=== PATIENT | male | born 1950 | race Two or more races ===

== ENCOUNTER 2025-10-07 12:32 | Emergency (ER) | payer OTHER, SELFPAY ==
[2025-10-07] VITALS (7 sets, daily range): BP systolic 112–131; BP diastolic 61–72; PULSE 67–75
[2025-10-07 13:09] LABS: Hematocrit 40.2 % (39.0-52.0); Hemoglobin 15.0 g/dL (13.0-18.0); Mean Corp Hgb Conc. 37.3 g/dL (33.0-37.0); Mean Corpuscular Volume 87.8 fL (80.0-94.0); Nucleated Red Blood Cells % 0 % (-); Platelet Count 176 10^3/uL (130-400); Red Cell Dist. Width 13.9 % (11.5-14.5)
[2025-10-07 13:15] LABS: INR 1.10; PT 14.5 Sec (11.4-14.6)
[2025-10-07 13:16] LABS: APTT 31.6 Sec (23.4-35.0)
[2025-10-07 13:29] LABS: ALT (SGPT) 21 U/L (0-50); AST (SGOT) 24 U/L (17-59); Albumin 4.4 g/dl (3.5-5.0); Alkaline Phosphatase 63 U/L (38-126); Blood Urea Nitrogen 17 mg/dl (9-20); Calcium 9.3 mg/dl (8.4-10.2); Carbon Dioxide 29 mmol/L (22-30); Chloride 103 mmol/L (98-107); Glucose 107 mg/dl (70-99); Potassium 4.7 mmol/L (3.5-5.1); Sodium 139 mmol/L (135-145); Total Protein 8.2 g/dl (6.3-8.2); eGFR > 60.00
[2025-10-07 13:37] LABS: Troponin I < 0.012 ng/ml
--- NOTE | 2025-10-07 15:58 | ED.GENMED ---
History of Present Illness
<Siria Solis PA-C - Last Filed: 10/09/25 13:20>
General
Chief Complaint: Dizziness
Source: patient
Exam Limitations: none
Time Seen by Provider: 10/07/25 15:50
Nursing documentation reviewed up to this point in time: agreed with
History of Present Illness
History of Present Illness:
see MDM
Phy Exam
<Siria Solis PA-C - Last Filed: 10/09/25 13:20>
Physical Exam
Physical Exam:
see MDM
Course
<Siria Solis PA-C - Last Filed: 10/09/25 13:20>
Orders/Labs/Results
Orders:
Orders
10/07/25 12:47
CT Head W/o Iv Contrast Urgent
Comment:
Reason For Exam: dizziness
10/07/25 12:57
Complete Blood Count/With Diff Urgent
Comprehensive Metabolic Panel Urgent
PTT Urgent
Prothrombin Time Urgent
TSH Reflex To Free T4 Urgent
Comment: ADD ON
Troponin I Urgent
10/07/25 16:35
0.9% Sodium Chloride 1000 ml [Nss] 1,000 ml IV BOLUS
10/07/25 16:36
Add On- LAB Urgent
Tests Added?: tsh reflex t4
Orthostatic VS- Treatment ONCE
10/07/25 16:52
COVID-19 Antigen Urgent
Source: Nasal Swab
Influenza A+B Rapid Molecular Urgent
ELVA Source: Nasal Swab
Specimen Description:
Abnormal Lab Results
10/07/25
12:57
WBC 4.4 L 10^3/uL
(4.8-10.8)
RBC 4.58 L 10^6/uL
(4.70-6.10)
MCH 32.8 H pg
(27.0-31.0)
MCHC 37.3 H g/dL
(33.0-37.0)
Monocytes % 10.4 H %
(1.7-9.3)
Glucose 107 H mg/dl
(70-99)
Total Bilirubin 1.4 H mg/dl
(0.2-1.3)
10/07/25 12:57
10/07/25 12:57
Vital Signs
Initial and Last Documented VS:
Initial Vital Signs
Temp Pulse Resp BP Pulse Ox
36.8 C 56 16 129/71 99
10/07/25 12:40 10/07/25 12:40 10/07/25 12:40 10/07/25 12:40 10/07/25 12:40
Last Documented Vital Signs
Temp Pulse Resp BP Pulse Ox
36.8 C 68 19 122/61 98
10/07/25 12:40 10/07/25 17:45 10/07/25 17:45 10/07/25 17:00 10/07/25 17:45
Jessicalt;Violetta Syed, DO - Last Filed: 10/07/25 18:15>
Orders/Labs/Results
Orders:
Orders
10/07/25 12:47
CT Head W/o Iv Contrast Urgent
Comment:
Reason For Exam: dizziness
10/07/25 12:57
Complete Blood Count/With Diff Urgent
Comprehensive Metabolic Panel Urgent
PTT Urgent
Prothrombin Time Urgent
TSH Reflex To Free T4 Urgent
Comment: ADD ON
Troponin I Urgent
10/07/25 16:35
0.9% Sodium Chloride 1000 ml [Nss] 1,000 ml IV BOLUS
10/07/25 16:36
Add On- LAB Urgent
Tests Added?: tsh reflex t4
Orthostatic VS- Treatment ONCE
10/07/25 16:52
COVID-19 Antigen Urgent
Source: Nasal Swab
Influenza A+B Rapid Molecular Urgent
ELVA Source: Nasal Swab
Specimen Description:
Abnormal Lab Results
10/07/25
12:57
WBC 4.4 L 10^3/uL
(4.8-10.8)
RBC 4.58 L 10^6/uL
(4.70-6.10)
MCH 32.8 H pg
(27.0-31.0)
MCHC 37.3 H g/dL
(33.0-37.0)
Monocytes % 10.4 H %
(1.7-9.3)
Glucose 107 H mg/dl
(70-99)
Total Bilirubin 1.4 H mg/dl
(0.2-1.3)
10/07/25 12:57
10/07/25 12:57
Vital Signs
Initial and Last Documented VS:
Initial Vital Signs
Temp Pulse Resp BP Pulse Ox
36.8 C 56 16 129/71 99
10/07/25 12:40 10/07/25 12:40 10/07/25 12:40 10/07/25 12:40 10/07/25 12:40
Last Documented Vital Signs
Temp Pulse Resp BP Pulse Ox
36.8 C 68 19 122/61 98
10/07/25 12:40 10/07/25 17:45 10/07/25 17:45 10/07/25 17:00 10/07/25 17:45
<Siria Solis PA-C - Last Filed: 10/09/25 13:20>
MDM/Problems Addressed
Differential Diagnosis Includes:
see MDM
MDM/Problems Addressed:
Note:
CHIEF COMPLAINT(S)
- Lightheadedness since yesterday morning.
HISTORY OF PRESENT ILLNESS
The patient is a 75-year-old male who presents with lightheadedness that began yesterday morning upon waking from sleep. The patient reports experiencing episodes of lightheadedness both while seated and when getting up, which persisted throughout
the day. The dizziness was described as a 'light-head,' without any associated room-spinning sensations, indicating the absence of vertigo. There was no chest pain, shortness of breath, facial numbness, facial droop, numbness, tingling, weakness in
extremities, or recent falls reported. The patient did not feel as if he was going to pass out. Today, symptoms were noted to be less intense. The patient denied any recent illness, dehydration, or changes in dietary or fluid intake. He has had no
recent travel or significant lifestyle changes. Past cardiac history includes arrhythmia, and he denies any history of myocardial infarction or coronary stenting. Blood pressure variations were noted, suspected to be orthostatic hypotension with
numbers documented where he dropped his blood pressure from 120/70, per documentation from a recent visit to his primary care provider. Flying to 100/60 standing
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
PAST MEDICAL AND SURIGICAL HISTORY
- Cardiac arrhythmia
MEDICATIONS
- Apixaban (Eliquis)
- Atenolol
REVIEW OF SYSTEMS
- Neurological: Lightheadedness, no numbness, tingling, or weakness
- Cardiovascular: No chest pain
- Respiratory: No shortness of breath
SOCIAL DETERMINANTS AFFECTING HEALTH
This section was not specifically discussed in the transcript reviewed.
PHYSICAL EXAM
- Nursing notes reviewed and vital signs reviewed.
GENERAL: Alert , in no apparent distress
EYE: pupils equal and reactive
NECK: Supple
ENT: o/p clr, mmm.
CARDIAC: Regular rate and rhythm . No murmur
LUNGS: Clear breath sounds bilaterally, no acute respiratory distress, no wheezes/rales/rhonchi
ABDOMEN: Soft, without focal tenderness, no r/g, no cvat, normal bowel sounds
NEUROLOGICAL: Alert and oriented, no focal neuro deficits
SKIN: Warm and dry, skin intact.
MUSCULOSKELETAL: No edema, well perfused. neg calli's sign
PSYCH: Normal and appropriate interaction.
Orthostatics positive by symptoms, not significantly dropped BP like in the office of his primary
PLAN
- Reassess orthostatic blood pressures (lying, sitting, standing) for suspected orthostatic hypotension.
DIFFERENTIAL DIAGNOSIS
The Differential Diagnosis includes, in no particular order and is not limited to:
1. Orthostatic hypotension
2. Cardiac arrhythmia
3. Dehydration
4. Anemia
5. Vestibular dysfunction
6. Medication side effects
7. Electrolyte imbalance
8. Transient ischemic attack
9. Hypoglycemia
10. Anxiety disorder
CARE-UPDATE
10/07/25 - 18:15
Patient reports feeling generally unwell but has no difficulty walking. Recent CT scan of the brain and thyroid levels are normal. The patient may have been dehydrated due to insufficient fluid intake, potentially exacerbated by diuretic effects of
coffee and alcohol. Advised to prioritize drinking water, ensure proper nutrition, and sit on the side of the bed before standing to mitigate symptoms. No further immediate interventions are planned unless symptoms worsen, in which case a
re-evaluation will be necessary.
<Siria Solis PA-C - Last Filed: 10/09/25 13:20>
*Pulse Oximetry
SaO2: 99
Oxygen Mode of Delivery: Room air
Patient hypoxic: no (98)
*Critical Care Note
Total Time (30-74mins, 75-104mins- exclusive of procedures): Not Applicable
ED Attending Note
<Siria Solis PA-C - Last Filed: 10/09/25 13:20>
-
Portions of this chart may have been created with voice recognition software.� Occasional wrong word or��sound alike� substitutions may have occurred due to the inherent limitations of voice recognition software.
<Violetta Syed DO - Last Filed: 10/07/25 18:15>
ED Attending Note
Patient seen and examined by attending physician: Yes
I performed the substantive portion of visit, reviewed & personally made and approve the management plan that is documented in note by myself or GARRETT.: Yes
I performed a history and physical exam of patient and discussed management with resident, I reviewed resident's note and agree with documented findings and plan of care.: Yes
ED Attending Note:
75-year-old male presents to the ER for evaluation of intermittent dizziness since yesterday. Patient typically feels the symptoms when going from sitting to standing. He was positive on his orthostatic vital signs at the PCP office today.
Patient denies any complaints at time of my evaluation, after receiving IV fluid hydration. Able to ambulate with a steady gait. Normotensive throughout time in the ER. Vital signs reviewed, patient awake, alert, appears no acute distress, has
normocephalic atraumatic, conjunctiva pink, GCS is 15, moving all extremities symmetrically without focal deficit. I reviewed all test results with physician car rental sales assistant. I discussed with patient and present bedside very reassuring workup in
the emergency department, symptoms most consistent with orthostatic hypotension. CT head very reassuring, particular symptoms of going on for the past 2 days. Patient would prefer to be discharged as he has a wedding to attend tomorrow. I
discussed with patient benefit of decreasing caffeine use to only 2 cups of coffee in the morning and to increase oral water intake. We also discussed use of alcohol, I suggested to patient that he sould try to limit this. He expressed
understanding of plan for discharge and has no questions at the current time.
Discharge Plan
Departure
Patient Disposition: Home (Routine Discharge)
Date of Disposition: 10/07/25
Time of Disposition: 18:10
Patient with high blood pressure during this ER visit?: No
Condition: Fair
Covid-19: Not Applicable
Discharge Problem:
Orthostatic hypotension
Instructions: Dizziness, Nonvertigo, (DC)
Referrals:
Tim Hernandez, [Family Provider, Family Practice] - Follow up in 2-3 days
Activity Restrictions/Additional Instructions:
Your symptoms were probably driven by dehydration, make sure you are staying hydrated with water. Coffee is not adequate to maintain hydration. Eat a well-balanced diet. Make sure to sit on the side of the bed before standing to avoid that
lightheadedness feeling. Should you have worsening symptoms like room spinning dizziness, severe headache or any weakness numbness or tingling in your arms legs or face, chest pain or shortness of breath, passing out etc. return to the emergency
department immediately.
Return for any concerns
Interventions
Interventions:
*Risk Screen - Suicide Last Done: 10/07/25 12:40
*General Assessment Last Done: 10/07/25 18:11
*Neglect/Abuse Screening Last Done: 10/07/25 12:40
*ED- Fall Risk Assessment Last Done: 10/07/25 18:11
*ED COVID-19 Vaccine History Last Done: 10/07/25 18:11
*ED Influenza Vaccine History Last Done: 10/07/25 18:11
*Nursing Disposition Last Done: 10/07/25 18:25
ED- Neurological Assessment Last Done: 10/07/25 18:11
ED Swallowing Screen Last Done: 10/07/25 18:14
Discharge Date and Time
Discharge Date/Time: 10/07/25 18:26
Print Language: THAI
[2025-10-07] MEDS: NSS 1000 IV (16:53)
[2025-10-07 17:24] LABS: COVID-19 Antigen Negative (Negative)
== END 2025-10-07 18:26 | disposition home or self-care (01) ==
LOC: EMR 12:32
PROVIDERS: Physician Assistant; Student in an Organized Health Care Education/Training Program; EMERGENCY PHYSICIAN Emergency Medicine; FAMILY PHYSICIAN Family Medicine
DX: I95.1 Orthostatic hypotension (principal)
CPT/HCPCS: 99284; 96360; 70450; 80053; 84443; 84484; 85025; 85610; 85730; 87502; 87811

== ENCOUNTER → 2025-11-05 10:11 | Outpatient (REF) | payer OTHER, SELFPAY | LOC: MRI 3T 10:11 | PROVIDERS: ATTENDING PHYSICIAN Family Medicine | DX: R42 Dizziness and giddiness (principal) | CPT/HCPCS: 70553; A9575 ==